=== PATIENT | female | born 1970 | race African-American/Black ===

== ENCOUNTER 2017-01-19 07:14 | Emergency (ER) | payer SELFPAY ==
--- NOTE | 2017-01-19 08:35 | ER Document Report ---
ED General - General Mode of Arrival: Ambulatory Information source: Patient TRAVEL OUTSIDE OF THE [place] IN LAST 30 DAYS: No - HPI Onset: Other - 2 weeks ago Onset/Duration: Constant Associated symptoms: Other - see notes above - General Chief Complaint: Headache Stated Complaint: CONGESTION Time Seen by Provider: 01/19/17 08:16 Notes: 46-year-old female with no prior medical problems presents to the ED complaining of a brown tinged productive cough, right-sided headache, mid back pain, rhinorrhea (both sides), and congestion that started approximately 2 weeks ago and has been constant throughout. Patient also states that she developed a fever yesterday and reports having diarrhea a "few days ago" and wheezing at night. Patient denies shortness breath or vomiting. Patient denies anyone at home being sick. PCP: None (LUIS KERR) - Related Data Allergies/Adverse Reactions: No Known Allergies Allergy (Unverified 01/19/17 07:23) Past Medical History - General Information source: Patient - Social History Smoking Status: Current Every Day Smoker Chew tobacco use (# tins/day): No Frequency of alcohol use: None Drug Abuse: None Family History: Reviewed & Not Pertinent Patient has suicidal ideation: No Patient has homicidal ideation: No Renal/ Medical History: Denies: Hx Peritoneal Dialysis Review of Systems - Review of Systems Constitutional: See HPI, Fever - last night EENT: See HPI, Nose congestion, Nose discharge Cardiovascular: No symptoms reported Respiratory: See HPI, Sputum - brown tinged, Wheezing - at night. denies: Short of breath Gastrointestinal: See HPI, Diarrhea - few days ago. denies: Vomiting Genitourinary: No symptoms reported Female Genitourinary: No symptoms reported Musculoskeletal: No symptoms reported Skin: No symptoms reported Hematologic/Lymphatic: No symptoms reported Neurological/Psychological: No symptoms reported -: Yes All other systems reviewed and negative Physical Exam - Vital signs Vitals: Temp Pulse Resp BP Pulse Ox 98.6 F 88 16 145/74 H 99 01/19/17 07:20 01/19/17 07:20 01/19/17 07:20 01/19/17 07:20 01/19/17 07:20 - Notes Notes: GENERAL: Alert, interacts well. No acute distress. HEAD: Normocephalic, atraumatic. EYES: Pupils equal, round, and reactive to light. Extraocular movements intact. ENT: Oral mucosa moist, tongue midline. Nares patent with clear rhinorrhea and turbinate edema, no nasal septal hematoma, TM's bulging with cloudy fluid behind it, bilaterally. Unable to visualize posterior oropharynx NECK: Full range of motion. Supple. Trachea midline. LUNGS: Clear to auscultation bilaterally, no wheezes, rales, or rhonchi. No respiratory distress. HEART: Regular rate and rhythm. No murmurs, gallops, or rubs. ABDOMEN: Soft, non-tender. Non-distended. Bowel sounds present in all 4 quadrants. EXTREMITIES: Moves all 4 extremities spontaneously. No edema, radial and dorsalis pedis pulses 2/4 bilaterally. No cyanosis. NEUROLOGICAL: Alert and oriented x3. Normal speech. PSYCH: Normal affect, normal mood. SKIN: Warm, dry, normal turgor. No rashes or lesions noted. (LUIS KERR) Course - Re-evaluation Re-evalutation: 01/19/17 09:37 Chest x-ray shows a viral syndrome versus reactive airway disease. No evidence of pneumonia. Patient will be given an albuterol inhaler to help with some of the nocturnal wheezing. She was given a spacer as well as education on how to use the inhaler. For the persistent unilateral headache with persistent nasal drainage and subjective fevers patient will be given Augmentin 14 days for acute bacterial sinusitis. Patient is discharged home. (EBONY DOUGHERTY) - Vital Signs Vital signs: Temp Pulse Resp BP Pulse Ox 97.6 F 75 16 116/78 100 01/19/17 09:55 01/19/17 09:55 01/19/17 09:55 01/19/17 09:55 01/19/17 09:55 Discharge - Discharge Clinical Impression: Acute bacterial sinusitis, Viral bronchitis Condition: Stable Disposition: HOME, SELF-CARE Additional Instructions: Bronchitis with Bronchospasm (Wheezing) You have bronchitis with bronchospasm (wheezing). Sometimes people develop wheezing with a chest cold. This occurs either because of an underlying tendency toward asthma or because the virus itself irritates the bronchial tubes. This irritation causes cough, shortness of breath, and wheezing. Emergency treatment of bronchospasm may include adrenaline shots or bronchodilator aerosol. You may feel lightheaded and have a rapid pulse for an hour or two. Rest and get plenty of fluids. At home, we'll treat you with a bronchodilator inhaler. Corticosteroids may be required for some patients. Until you recover, avoid chemical fumes, dusts, pollens, and exercising in very cold or dry air. If you smoke, stop now! Most cases of bronchitis get better without antibiotics. We prescribe antibiotics when we believe bacteria are damaging your airways, or if there's high risk the bronchitis will worsen into pneumonia. Increase your fluid intake. A cool mist humidifier may make your lungs more comfortable. An expectorant (cough medicine that loosens phlegm) can help. Repeated episodes of bronchitis and bronchospasm may result in lung damage -- for example, chronic bronchitis, recurrent pneumonias, or emphysema. If you develop a fever, increased wheezing, chest pain, or severe shortness of breath, you should contact the doctor immediately. Sinusitis You have sinusitis, an infection of the sinus cavities of the face. The sinuses are air-filled chambers which open into the inside of the nose. Bacteria and pus fill a sinus, causing pain, drainage, and fever. Sinusitis is treated with antibiotics. Often, expectorants (to thin the sinus mucous) or decongestants (to reduce swelling) are prescribed as well. Healing requires seven to 10 days. Avoid chemical fumes, pollens, dusts, and smoke (especially cigarette smoke ). Keep the air humidified in your bedroom and work area and take plenty of liquids by mouth. This condition can be serious if the infection spreads. If your symptoms worsen, or if you develop severe headache, high fever, stiff neck, or a rash, you must call the doctor or return for re-evaluation. Prescriptions: Amox Tr/Potassium Clavulanate [Augmentin 875-125 Tablet] 1 tab PO BID 14 Days Forms: Return to Work Scribe Attestation: 01/19/17 14:42 I personally performed the services described in the documentation, reviewed and edited the documentation which was dictated to the scribe in my presence, and it accurately records my words and actions. (EBONY DOUGHERTY) Scribe Documentation - Scribe Written by Jacob:: Jacob Dickey, 01/19/2017 0902 acting as scribe for :: Clara
--- NOTE | 2017-01-19 08:54 | RADIOLOGY REPORT (SQ) ---
EXAM DESCRIPTION: CHEST PA/LAT COMPLETED DATE/TIME: 01/19/2017 8:44 am REASON FOR STUDY: cough, congestion COMPARISON: None. NUMBER OF VIEWS: Two view. TECHNIQUE: Frontal and lateral radiographic views of the chest acquired. LIMITATIONS: None. FINDINGS: LUNGS AND PLEURA: Peribronchial cuffing and interstitial changes. No consolidation, effus ion, or pneumothorax. MEDIASTINUM AND HILAR STRUCTURES: No masses. No contour abnormalities. HEART AND VASCULAR STRUCTURES: Heart normal in size and contour. No evidence for failure. BONES: No acute findings. HARDWARE: None in the chest. OTHER: No other significant finding. IMPRESSION: REACTIVE AIRWAY DISEASE VERSUS VIRAL SYNDROME. NO CONSOLIDATION. TECHNICAL DOCUMENTATION: JOB ID: [id number] [email or web address] All Rights Reserved
[2017-01-19] MEDS ORDERED: ALBUTEROL SULFATE HFA (90 MCG/PUFF) 8 GM MDI (1 MDI/ER DISP) IH ONE (09:30)
[2017-01-19 09:56] VITALS: BP 116/78
== END 2017-01-19 10:25 | disposition home or self-care (01) ==
LOC: ER 07:14
DX: J01.90 Acute sinusitis, unspecified (principal); B96.89 Other specified bacterial agents as the cause of diseases classified elsewhere; J20.8 Acute bronchitis due to other specified organisms; R51 Headache; R09.81 Nasal congestion; R05 Cough; M54.9 Dorsalgia, unspecified; J34.89 Other specified disorders of nose and nasal sinuses; F17.200 Nicotine dependence, unspecified, uncomplicated
CPT/HCPCS: 99284; 71020; J3490